=== PATIENT | male | born 1940 | race Caucasian/White ===

== ENCOUNTER 2022-04-12 12:29 | Inpatient (IN) | payer MEDICAID, MEDICARE ==
[~2022-04-12] VITALS: Ht 177.8 cm; Wt 98.4 kg
[2022-04-12] MEDS ORDERED: TRAZ-257 PO (12:53)
[2022-04-12] MEDS ORDERED: OMEP40CA21 PO (12:53)
[2022-04-12] MEDS ORDERED: GABA300C PO (12:53)
[2022-04-12] MEDS ORDERED: ACETAMINOPHEN 325 MG TABLET PO PRN (13:00)
[2022-04-12] MEDS ORDERED: clonazePAM 0.5 MG TABLET PO PRN (13:00)
[2022-04-12] MEDS ORDERED: BLOOD SUGAR DIAGNOSTIC 1 EACH STRIP IN ONE (13:00)
[2022-04-12] MEDS ORDERED: MAGNESIUM HYDROXIDE 30 ML UDC PO PRN (13:00)
--- NOTE | 2022-04-12 13:30 | NUR ---
GPS/RN RECEIVED PT DIRECT ADMIT FROM [facility] ON 5150 FRO DTS OVERDOSED ON PILLS. AMBULATORY ON FACE TO FACE ASSESSMENT NO SI/HI /AVH REPORTED. BELONGINGS CHECKED FOR CONTRABAND. VSS. ADMITTING ORDERS FROM [facility] EMPLOYMENT SECURITY OFFICER RECEIVED AND CARRIED OUT. JOLYNN FULTON EMPLOYMENT SECURITY OFFICER MADE AWARE OF ADMISSION
[2022-04-12 13:48] VITALS: BP 105/61
[2022-04-12 16:00] VITALS: BP 106/69
--- NOTE | 2022-04-12 20:00 | NUR ---
RN NOTES DR. CHU NOTIFIED REGARDING PATIENT'S HOME MEDS TO BE RECONCILED. .
[2022-04-12 20:33] VITALS: BP 114/53
[2022-04-12] MEDS: TEMAZEPAM 7.5 MG CAPSULE PO PRN (21:21)
--- NOTE | 2022-04-13 07:34 | NUR ---
RN NOTE PATIENT REFUSED SKIN ASSESSMENT.
[2022-04-13 08:00] VITALS: BP 119/66
--- NOTE | 2022-04-13 09:00 | NUR ---
RN-CO: DR WRIGHT AND DR DANG NOTIFIED THAT 72 HOLD WILL BE EXPIRING.
--- NOTE | 2022-04-13 09:39 | NUR ---
RN-CO: PATIENT IS COOPERATIVE TO CARE, DEPRESSED AND FEELING HOPELESS BUT DENIED SI. UNMOTIVATED TO SELFCARE. ENCOURAGED TO VENTILATE FEELINGS. WE WILL CONTINUE TO MONITOR.
--- NOTE | 2022-04-13 10:45 | NUR ---
AYLEEN Initial Discharge Plan: Patient currently resides at [address] [place], [place] [id number]; ([phone]). Pt would want to return back home. Pt does not have any supportive contact at this time. AYLEEN will work with the MD, treatment team, and family to help coordinate appropriate discharge.
--- NOTE | 2022-04-13 10:46 | NUR ---
AYLEEN Clinical Note: Pt placed on a 5150 hold for danger to self. Pt overdosed on medications. Patient currently resides at [address] [place] [address]; ([phone]). Pt would want to return back home. Pt does not have any supportive contact at this time.
--- NOTE | 2022-04-13 11:15 | NUR ---
RN-CO: PATIENT REFUSED LABS. 3X
--- NOTE | 2022-04-13 11:25 | NUR ---
Treatment Plan: Pt refused to sign treatment plan and was suspicious.
--- NOTE | 2022-04-13 11:50 | NUR ---
SW Contact: SW attempted to contact a person to notify that this typewriter tester found in pt's charge named August ([phone]) and left a detailed voicemail trying to gather collateral.
--- NOTE | 2022-04-13 12:31 | NUR ---
SW Substance Abuse Intervention: Patient was provided with a brief substance abuse intervention and referred to [facility] ([phone]), [facility] ([phone]), and [facility] ([phone]) for meth use.
[2022-04-13 16:00] VITALS: BP 140/51
[2022-04-13] MEDS: TEMAZEPAM 7.5 MG CAPSULE PO PRN (20:36)
--- NOTE | 2022-04-13 20:37 | NUR ---
RN NOTES PATIENT REQUESTED HIS SLEEPING PILL TO BE GIVEN AT THIS TIME. ADMINISTERED RESTORIL 15MG PO ORDERED. WILL CONTINUE TO MONITOR FOR PATIENT'S SAFETY.
[2022-04-13 21:13] VITALS: BP 99/60
[2022-04-13] MEDS: MIRTAZAPINE 15 MG TABLET PO SCH (21:51)
[2022-04-14 08:00] VITALS: BP 109/54
--- NOTE | 2022-04-14 14:03 | NUR ---
RN-NOTES PATIENT COMPLAINED THAT HE VOMITED X2 AND REQUESTING MEDICATIONS TO STOP. JOSEPH KELLEY MADE AWARE WITH T.O ORDER OF ZOFRAN 4MG P.O Q6HR PRN. NOTED AND CARRIED OUT.
[2022-04-14] MEDS: ONDANSETRON 4 MG TAB.RAPDIS PO PRN (14:19)
[2022-04-14 16:00] VITALS: BP 109/55
--- NOTE | 2022-04-14 17:56 | NUR ---
RN-NOTES PATIENT IS VISIBLE IN THE UNIT ,A/O X3,GUARDED,CALM,COOPERATIVE WITH STAFF,NO ACUTE DISTRESS NOTED. COMPLIANT WITH MEDICATIONS. ABLE TO MAKE NEEDS KNOWN TO THE STAFF. ALL NEEDS ATTENDED AND ANTICIPATED. WILL CONT. MONITORING FOR SAFETY AND BEHAVIOR.WILL ENDORSE TO INCOMING SHIFT FOR CONTINUITY OF CARE.
[2022-04-14 20:32] VITALS: BP 133/65
[2022-04-14] MEDS: MIRTAZAPINE 15 MG TABLET PO SCH (21:01)
[2022-04-14] MEDS: TEMAZEPAM 7.5 MG CAPSULE PO PRN (21:37)
[2022-04-15 08:00] VITALS: BP 107/56
--- NOTE | 2022-04-15 10:15 | NUR ---
RN-CO: RECEIVED PATIENT IN BED, ASLEEP. HE IS CALM BUT DEPRESSED, HOWEVER HE DENIES SUICIDAL IDEATION. HE IS UNMOTIVATED TO SELFCARE, I ENCOURAGED HIM TO TAKE A SHOWER AND TO PARTICIPATE IN GROUPS. I WILL CONTINUE TO MONITOR.
--- NOTE | 2022-04-15 11:28 | NUR ---
RN-CO: TYLENOL 650 MG PO GIVEN FOR C/O HEADACHE 09/23. Addendum: 04/15/22 at 1129 by LILA SHULTZ RN RN-CO: ERROR IN CHARTING.
[2022-04-15] MEDS: MAG HYDROX/AL HYDROX/SIMETH 30 ML UDC PO PRN ×3 (11:32→22:15)
[2022-04-15 16:00] VITALS: BP 111/56
[2022-04-15 19:51] VITALS: BP 136/55
[2022-04-15] MEDS: MIRTAZAPINE 15 MG TABLET PO SCH (21:13)
[2022-04-16 08:00] VITALS: BP 122/79
--- NOTE | 2022-04-16 10:00 | NUR ---
RN Notes: Received pt. awake in bed, quiet and responsive to staffs. Ate 50% for breakfast, pt. is quiet, in room most of the time and with depressed mood. Encouraged to verbalize feelings, motivated to attend group activity and encouraged to take shower, Needs attended, no distress and no agitation noted. Will continue to monitor for safety.
--- NOTE | 2022-04-16 10:31 | NUR ---
Court Notification: Pt does not have any family to contact to notify of [id number].
--- NOTE | 2022-04-16 15:03 | NUR ---
Caregiver: SW contacted pt's caregiver August ([phone]) she was aggressive towards this automobile service writer and was yelling that she has quit for pt and is no longer his caregiver. She stated that she does not want to be involved and stated to not call this automobile service writer.
--- NOTE | 2022-04-16 15:04 | NUR ---
Discharge Plan: Pt does not have any support and caregiver at home to help. Pt wants to return back home but has no family to confirm. Pt will possibly need a SNF.
[2022-04-16 16:00] VITALS: BP 122/65
--- NOTE | 2022-04-16 16:09 | NUR ---
Court Hearing: Patient's court hearing for 5250 was today and it was upheld for danger to self and GD.
--- NOTE | 2022-04-16 19:30 | NUR ---
GPS RN NOTE, RECEIVED PATIENT AWAKE AND IN BED, NO S/S OR COMPLAINTS OF PAIN AT THIS TIME. PATIENT IS DISPLAYING NO S/S OF APPARENT DISTRESS AT THIS TIME. PATIENT BREATHING IS UNLABORED WITH EQUAL RISE AND FALL OF THE CHEST. PATIENT IS ALERT AND ORIENTED X 3 ON ROOM AIR WITH A SPO2 97%. PATIENT IS COMPLIANT WITH MEDICATIONS, DEPRESSED, MAKES NEEDS KNOWN, POLITE, AND COOPERATIVE. PATIENT DENIES SUICIDAL AND HOMICIDAL IDEATIONS AT THIS TIME. PATIENT ASSISTED WITH TURNING AND REPOSITIONING Q2HR AND PRN FOR COMFORT AND CIRCULATION. PATIENT HAS NO NEEDS AT THIS TIME. PATIENT EDUCATED ON THE USE OF THE CALL MARQUEZ. PATIENT BED SIDE RAILS UP X 2 FOR SAFETY. PATIENT BED IS LOCKED, LOW, WITH BED ALARM ON. WILL CONTINUE TO MONITOR THIS PATIENT Q15 MINUTES WITH THE HELP OF STAFF TO MAINTAIN SAFETY.
[2022-04-16 19:51] VITALS: BP 119/54
[2022-04-16] MEDS: MIRTAZAPINE 15 MG TABLET PO SCH (21:52)
[2022-04-16] MEDS: TEMAZEPAM 7.5 MG CAPSULE PO PRN (21:54)
--- NOTE | 2022-04-16 21:54 | NUR ---
GPS RN NOTE, PATIENT HAS A COMPLAINT OF NOT BEING ABLE TO SLEEP AND IS REQUESTING RESTORIL AT THIS TIME. PATIENT VITAL SIGNS ARE STABLE. GAVE RESTORIL 15MG PO HS PRN ORDERED. WILL REASSESS FOR INSOMNIA AND I WILL CONTINUE TO MONITOR THIS PATIENT WITH THE HELP OF STAFF.
[2022-04-16] MEDS: MAG HYDROX/AL HYDROX/SIMETH 30 ML UDC PO PRN (22:33)
--- NOTE | 2022-04-16 22:33 | NUR ---
GPS RN NOTE, PATIENT HAS A COMPLAINT OF INDIGESTION AND IS REQUESTING MAALOX AT THIS TIME. PATIENT VITAL SIGNS ARE STABLE. GAVE MAALOX 30ML PO Q4HR PRN ORDERED. WILL REASSESS FOR INDIGESTION AND I WILL CONTINUE TO MONITOR THIS PATIENT WITH THE HELP OF STAFF.
[2022-04-16] MEDS: NAPROXEN 250 MG TABLET PO PRN (22:38)
--- NOTE | 2022-04-16 22:38 | NUR ---
GPS RN NOTE, PATIENT HAS A COMPLAINT OF CHRONIC LEFT WRIST PAIN AT 5 OUT 10 ON THE PAIN SCALE REQUESTING NAPROXEN AT THIS TIME. PATIENT VITAL SIGNS ARE STABLE. PAGED [facility] AND INFORMED MARIELLE LOPEZ NP OF MY FINDINGS. MARIELLE LOPEZ NP ORDERED NAPROXEN 250MG PO Q12HR PRN ORDERED. ALL ORDERS NOTED AND CARRIED OUT. GAVE NAPROXEN 250MG PO Q12HR PRN ORDERED. WILL CONTINUE TO MONITOR THIS PATIENT WITH THE HELP OF STAFF.
[2022-04-17 08:00] VITALS: BP 105/50
--- NOTE | 2022-04-17 08:49 | NUR ---
AYLEEN Note: SW discussed placement with pt if he would want a SNF he stated that he would want to go back home. He stated that he will be paying for his Uber when discharging.
--- NOTE | 2022-04-17 08:53 | NUR ---
SW Note: Pt confirmed his address: [address], [place] [address].
--- NOTE | 2022-04-17 09:10 | NUR ---
AYLEEN Coordination of Care: Patient will follow up with (Aircraft Pilot) Dr. Tristen Moreno located at [address] [address]; ([phone]) on April 22 at 2:30PM who will provide and monitor patients antipsychotic medications. Scheduled by retail center receptionist Faye.
[2022-04-17] MEDS: MAG HYDROX/AL HYDROX/SIMETH 30 ML UDC PO PRN ×3 (09:11→18:36)
--- NOTE | 2022-04-17 09:35 | NUR ---
RN Notes: Received pt. asleep in bed, breathing is even and unlabored. Ate 100% for breakfast, pt. was complaining of stomach upset and Maalox prn given. Pt. seen in the dining watching tv and easily got irritated and needy. Encouraged to verbalize feelings and motivated to attend group activity and encouraged to take shower. Needs attended and will continue to monitor for safety.
[2022-04-17 16:00] VITALS: BP 120/71
--- NOTE | 2022-04-17 19:30 | NUR ---
GPS RN NOTE, RECEIVED PATIENT AWAKE AND IN BED, NO S/S OR COMPLAINTS OF PAIN AT THIS TIME. PATIENT IS DISPLAYING NO S/S OF APPARENT DISTRESS AT THIS TIME. PATIENT BREATHING IS UNLABORED WITH EQUAL RISE AND FALL OF THE CHEST. PATIENT IS ALERT AND ORIENTED X 3 ON ROOM AIR WITH A SPO2 99%. PATIENT IS COMPLIANT WITH MEDICATIONS, DEPRESSED, MAKES NEEDS KNOWN, POLITE, AND COOPERATIVE. PATIENT DENIES SUICIDAL AND HOMICIDAL IDEATIONS AT THIS TIME. PATIENT ASSISTED WITH TURNING AND REPOSITIONING Q2HR AND PRN FOR COMFORT AND CIRCULATION. PATIENT HAS NO NEEDS AT THIS TIME. PATIENT EDUCATED ON THE USE OF THE CALL MARQUEZ. PATIENT BED SIDE RAILS UP X 2 FOR SAFETY. PATIENT BED IS LOCKED, LOW, WITH BED ALARM ON. WILL CONTINUE TO MONITOR THIS PATIENT Q15 MINUTES WITH THE HELP OF STAFF TO MAINTAIN SAFETY.
[2022-04-17 20:00] VITALS: BP 116/62
[2022-04-17] MEDS: NAPROXEN 250 MG TABLET PO PRN (21:13)
[2022-04-17] MEDS: TEMAZEPAM 7.5 MG CAPSULE PO PRN (21:13)
[2022-04-17] MEDS: GABAPENTIN 300 MG CAPSULE PO SCH (21:13)
[2022-04-17] MEDS: MIRTAZAPINE 15 MG TABLET PO SCH (21:13)
--- NOTE | 2022-04-17 21:13 | NUR ---
GPS RN NOTE, PATIENT HAS A COMPLAINT OF NOT BEING ABLE TO SLEEP AND IS REQUESTING RESTORIL AT THIS TIME. PATIENT VITAL SIGNS ARE STABLE. GAVE RESTORIL 7.5MG PO HS PRN ORDERED. WILL REASSESS FOR INSOMNIA AND I WILL CONTINUE TO MONITOR THIS PATIENT WITH THE HELP OF STAFF.
--- NOTE | 2022-04-17 21:13 | NUR ---
GPS RN NOTE, PATIENT HAS A COMPLAINT OF CHRONIC LEFT WRIST PAIN AT 5 OUT 10 ON THE PAIN SCALE REQUESTING NAPROXEN AT THIS TIME. PATIENT VITAL SIGNS ARE STABLE. GAVE NAPROXEN 250MG PO Q12HR PRN ORDERED. WILL CONTINUE TO MONITOR THIS PATIENT WITH THE HELP OF STAFF.
[2022-04-17] MEDS: ONDANSETRON 4 MG TAB.RAPDIS PO PRN (21:18)
--- NOTE | 2022-04-17 21:18 | NUR ---
GPS RN NOTE, PATIENT HAS A COMPLAINT OF FEELING NAUSEA AND IS REQUESTING ZOFRAN AT THIS TIME. PATIENT VITAL SIGNS ARE STABLE. GAVE ZOFRAN ODT 4MG PO Q6 PRN ORDERED. WILL REASSESS PATIENT AND I WILL CONTINUE TO MONITOR THIS PATIENT WITH THE HELP OF STAFF.
[2022-04-18] MEDS: PANTOPRAZOLE 40 MG TABLET.DR PO SCH (07:48)
[2022-04-18 08:00] VITALS: BP 112/64
[2022-04-18] MEDS: MAG HYDROX/AL HYDROX/SIMETH 30 ML UDC PO PRN ×2 (09:02→21:07)
--- NOTE | 2022-04-18 09:30 | NUR ---
RN Notes: Received pt. asleep in bed, breathing is even and unlabored. Ate 100% for breakfast, compliant on meds and complaining of stomach upset and Maalox prn given. Pt. is easily got irritated, disorganized and unkempt. Encouraged to verbalize feelings and motivated to shower. Needs attended and will continue to monitor for safety.
--- NOTE | 2022-04-18 11:35 | NUR ---
Keshav SYSTEMS PROGRAMMER seen and examined pt. and ordered Sucralfate 1 gram BID.
[2022-04-18] MEDS ORDERED: SUCRALFATE 1 G TABLET PO ONE (13:00)
--- NOTE | 2022-04-18 13:01 | NUR ---
Keshav MOTOR INSPECTION MECHANIC ordered to given first dose ot sucralfate now
[2022-04-18 16:01] VITALS: BP 102/63
[2022-04-18] MEDS: SUCRALFATE 1 G TABLET PO SCH (16:20)
[2022-04-18 20:00] VITALS: BP 115/62
[2022-04-18] MEDS: TEMAZEPAM 7.5 MG CAPSULE PO PRN (21:07)
[2022-04-18] MEDS: NAPROXEN 250 MG TABLET PO PRN (21:07)
[2022-04-18] MEDS: MIRTAZAPINE 15 MG TABLET PO SCH (21:07)
[2022-04-18] MEDS: GABAPENTIN 300 MG CAPSULE PO SCH (21:07)
[2022-04-19 08:00] VITALS: BP 106/54
[2022-04-19] MEDS: PANTOPRAZOLE 40 MG TABLET.DR PO SCH (08:31)
[2022-04-19] MEDS: SUCRALFATE 1 G TABLET PO SCH ×2 (08:31→16:28)
[2022-04-19] MEDS: NAPROXEN 250 MG TABLET PO PRN (08:31)
[2022-04-19 16:00] VITALS: BP 116/67
[2022-04-19 20:38] VITALS: BP 120/68
[2022-04-19] MEDS: GABAPENTIN 300 MG CAPSULE PO SCH (21:10)
[2022-04-19] MEDS: MIRTAZAPINE 15 MG TABLET PO SCH (21:10)
[2022-04-19] MEDS: TEMAZEPAM 7.5 MG CAPSULE PO PRN (21:11)
--- NOTE | 2022-04-19 21:12 | NUR ---
Pt c/o insomnia. Least restrictive measures ineffective. Restoril 7.5 mg po prn given as ordered. Will continue to monitor.
--- NOTE | 2022-04-19 22:15 | NUR ---
Post 1 hr Restoril effective. Pt asleep in bed easy to arouse. Frequent visual check done for safety. Will continue to monitor.
[2022-04-20] MEDS: PANTOPRAZOLE 40 MG TABLET.DR PO SCH (07:55)
[2022-04-20 08:00] VITALS: BP 113/73
--- NOTE | 2022-04-20 08:06 | NUR ---
AYLEEN Initial Discharge Note: Patient will be returning back home located at [address] [place] [address]; ([phone]). Patient will order Uber at 1PM. Patient is alert and oriented x3. patient does not have any supportive contact at this time. Patient denies suicidal or homicidal ideation. Patient denies visual/auditory hallucinations. Patient will follow up with (Valet Manager) Dr. Tristen Moreno located at [address] [address]; ([phone]) on April 22 at 2:30PM who will provide and monitor patient's antipsychotic medications. Patient presents with euthymic mood and congruent affect. Addendum: 04/20/22 at 0947 by AYLEEN PRIDE DISCHARGE CANCELED DUE TO TRANSPORTATION ISSUES.
[2022-04-20] MEDS: SUCRALFATE 1 G TABLET PO SCH ×2 (08:31→17:04)
--- NOTE | 2022-04-20 09:47 | NUR ---
AMTRAK: AYLEEN GAVE PERMISSION OF THIS OUTDOOR EDUCATION TEACHER TO ORDER BUS TICKET THROUGH [employer]. PT WAS PRESENT. Reservation: [id number] for [employer]. Patient will be departing at 9:36AM and arriving at 1:25PM home. AYLEEN GAVE PT RECEIPT/TICKET AND PLACED IT IN CHART $40.00 AYLEEN GAVE PT TAXI INFORMATION IN [place]. Addendum: 04/20/22 at 0950 by AYLEEN PRIDE TAXI IN [place] FIRST TRANSIT [place] [employer] TAXI TAXI INFORMATION WAS GIVEN FOR PT.
[2022-04-20 16:00] VITALS: BP 116/63
[2022-04-20 19:37] VITALS: BP 113/70
[2022-04-20] MEDS: MIRTAZAPINE 15 MG TABLET PO SCH (21:00)
[2022-04-20] MEDS: GABAPENTIN 300 MG CAPSULE PO SCH (21:00)
[2022-04-20] MEDS: TEMAZEPAM 7.5 MG CAPSULE PO PRN (21:27)
[2022-04-21 07:00] VITALS: BP 136/78
--- NOTE | 2022-04-21 07:21 | NUR ---
GPS DISCHARGE NOTES: PATIENT WAS DISCHARGED TO [facility] IN STABLE CONDITION. HANDED DISCHARGE PAPERWORK AND PATIENT SIGNED DISCHARGE FORM. COMPLIANT WITH MEDICATIONS, COOPERATIVE WITH TREATMENT PLANS. PATIENT DENIES SI/HI AND INSTRUCTED TO GO TO THE CLOSEST ER IF PATIENT DEVELOPS SI/HI. BEHAVIOR IMPROVED, PSYCHIATRIC TREATMENT PLANS MET, MEDICAL TREATMENT PLANS DEFERRED FOR CONTINUAL MONITORING. MEDICATIONS RECONCILED WITH DERICK KELLEY DNP AND VERIFIED PATIENT'S MEDICATIONS. EDUCATED PATIENT ABOUT EXIT-CARE PLAN AND COPY PROVIDED TO THE PATIENT. PATENT WAS TAKEN TO THE LOBBY VIA WHEELCHAIR IN NO ACUTE DISTRESS AND LEFT VIA TAXI. TAXI VOUCHER GIVEN TO THE NURSING DIE KEEPER.
--- NOTE | 2022-04-21 08:06 | NUR ---
SW Discharge Note: Patient will be returning back home. Patient will be provided with taxi transportation at 7:30AM. Please coordinate TAXI transportation to [facility] located at [address] [place] [phone] at 7:30AM. Patient has a ticket Reservation: [id number] for [employer]. Patient will be departing at 9:36AM and arriving at 1:25PM home. Patient lives at [address] [place] [address]; ([phone]). Patient will order Uber at 1PM. Patient is alert and oriented x3. patient does not have any supportive contact at this time. Patient denies suicidal or homicidal ideation. Patient denies visual/auditory hallucinations. Patient will follow up with (Finishing Supervisor Plastic Sheets) Dr. Tristen Moreno located at [address] [address]; ([phone]) on April 22 at 2:30PM who will provide and monitor patient's antipsychotic medications. Patient presents with euthymic mood and congruent affect.
--- NOTE | 2022-04-21 11:18 | NUR ---
AYLEEN Family Contact: AYLEEN received a call from patient's daughter Joselito ([phone]) and wanted to speak to this bond underwriter. SW left a detailed voicemail.
== END 2022-04-21 07:21 | disposition home or self-care (01) | DRG 881 ==
LOC: GPS 12:29
PROVIDERS: ADMIT Nurse Practitioner Psychiatric/Mental Health; ATTEND Nurse Practitioner Acute Care
DX: F32.9 Major depressive disorder, single episode, unspecified (principal); N17.9 Acute kidney failure, unspecified; N18.9 Chronic kidney disease, unspecified; I48.20 Chronic atrial fibrillation, unspecified; F29 Unspecified psychosis not due to a substance or known physiological condition; F41.9 Anxiety disorder, unspecified; D63.8 Anemia in other chronic diseases classified elsewhere; F17.210 Nicotine dependence, cigarettes, uncomplicated; Z91.199 Patient's noncompliance with other medical treatment and regimen due to unspecified reason; Z88.0 Allergy status to penicillin; Z91.51 Personal history of suicidal behavior; Z73.6 Limitation of activities due to disability; K27.9 Peptic ulcer, site unspecified, unspecified as acute or chronic, without hemorrhage or perforation; G62.9 Polyneuropathy, unspecified; F15.10 Other stimulant abuse, uncomplicated; M62.81 Muscle weakness (generalized); Z71.6 Tobacco abuse counseling; Z79.899 Other long term (current) drug therapy
CPT/HCPCS: 87081-TC; Q0162